=== PATIENT | female | born 1950 | race Caucasian/White ===

== ENCOUNTER → 2016-04-05 | Outpatient (CLI) | payer OTHER ==
[~2016-04-05] MED LIST: BUPR150T7 PO; CITA20TA9 PO; ESTR1CRE PV; GADAVIST IV PRN; LORA-741 PO
--- NOTE | 2016-04-05 14:21 | DIAGNOSTIC IMAGING REPORT ---
MRI brain BRAIN COMBO FOR IAC CLINICAL HISTORY: ATTN. IAC,DIZZINESS,HEARING Loss, tinnitus tinnitus. Hearing loss. TECHNIQUE: Multi axial MRI acquisition COMPARISON STUDY: None FINDINGS: Unremarkable signal characteristics of the cerebellar as well as cerebral hemispheres. Ventricular system is midline. Several small foci of increased signal within the periventricular deep white matter regions consistent with chronic small vessel change of aging. No evidence for abnormal postcontrast enhancement. Sella and parasellar regions are unremarkable. Internal artery canals are symmetric. IMPRESSION: Negative MRI of the brain and internal auditory canals for age. Electronically signed by: Marlo Ayala M.D. 04/05/2016 2:19 PM Dictated Date/Time: 04/05/2016 2:15 PM
== END | disposition home or self-care (01) ==
LOC: C.MRIBC 12:58
PROVIDERS: ATTEND Family Medicine
DX: H93.19 Tinnitus, unspecified ear (principal); H91.90 Unspecified hearing loss, unspecified ear; R42 Dizziness and giddiness

== ENCOUNTER → 2016-06-17 | Outpatient (CLI) | payer OTHER ==
[~2016-06-17] MED LIST changes: -GADAVIST IV PRN
[2016-06-17 14:41] LABS: ALKALINE PHOSPHATASE 68 U/L (45-117); ALT/SGPT 40 U/L (12-78); AST/SGOT 31 U/L (15-37); CHOLESTEROL 259 mg/dl (0-200); HDL CHOLESTEROL 65 mg/dl; LDL CHOLESTEROL CALCULATED 157 mg/dl; TRIGLYCERIDES 186 mg/dl (0-150); VERY LOW DENSITY LIPOPROT CALC 37 mg/dl
== END | disposition home or self-care (01) ==
LOC: C.LABBC 12:23
PROVIDERS: ATTEND Family Medicine
DX: E78.00 Pure hypercholesterolemia, unspecified (principal); Z11.59 Encounter for screening for other viral diseases